=== PATIENT | male | born 1955 | race African-American/Black ===

== ENCOUNTER 2021-04-11 01:32 | Emergency (ER) | payer OTHER ==
[~2021-04-11] VITALS: Ht 177.8 cm; Wt 90.7 kg
[2021-04-11 02:43] LABS: URINE BILIRUBIN NEGATIVE (Negative); URINE BLOOD 3+ (Negative); URINE CLARITY CLOUDY; URINE COLOR YELLOW; URINE GLUCOSE-RANDOM* NEGATIVE (Negative); URINE KETONES NEGATIVE (Negative); URINE NITRITE-REFLEX NEGATIVE (Negative); URINE PROTEIN (DIPSTICK) 2+ (Negative); URINE SPECIFIC GRAVITY 1.025 (1.005-1.035); URINE UROBILINOGEN 0.2 E.U./dl (0.2-1.0)
[2021-04-11 02:44] LABS: URINE LEUKOCYTES-REFLEX 3+ (Negative)
[2021-04-11] MEDS ORDERED: CIPROFLOXACIN500 M1 PO (02:46)
[2021-04-11 02:49] VITALS: BP 131/78
[2021-04-11 02:59] LABS: BACTERIA-REFLEX >30 Many /HPF (None Seen); CASTS None Seen /LPF (None Seen); CRYSTALS None Seen /LPF (None Seen); MUCUS 0-3 Light strn/LPF (None Seen); SQUAMOUS None Seen /LPF (0-3); URINE WBC-REFLEX >25 Many /HPF (0-5)
== END 2021-04-11 03:04 | disposition home or self-care (01) ==
LOC: ER 01:32 → EDSEX 01:32 → ER 03:04
PROVIDERS: Emergency Medicine
DX: R33.9 Retention of urine, unspecified (principal); Z79.899 Other long term (current) drug therapy